=== PATIENT | male | born 1985 | race Two or more races ===

== ENCOUNTER 2020-11-26 03:28 | Emergency (ER) | payer OTHER ==
[~2020-11-26] VITALS: Ht 172.7 cm; Wt 72.7 kg
[2020-11-26 09:48] VITALS: BP 108/55
== END 2020-11-26 10:42 | disposition home or self-care (01) ==
LOC: EMS 03:36
DX: F10.129 Alcohol abuse with intoxication, unspecified (principal); Y90.6 Blood alcohol level of 120-199 mg/100 ml
CPT/HCPCS: 36415; 99283; G0480